=== PATIENT | female | born 1965 | race Caucasian/White ===

== ENCOUNTER 2024-09-23 13:02 | Emergency (ER) | payer OTHER ==
[2024-09-23] MEDS: Lidocaine/Epineph/Tetracaine 3 ML Syringe TOP ONE (14:07)
[2024-09-23] MEDS: Bacitracin Oint 1 GM U/D Packet TOP ONE (14:48)
[2024-09-23] MEDS: Diphtheria,Pertussis(Acell),Tetanus Vaccine 0.5 ML Syringe IM ONE (14:48)
== END 2024-09-23 15:29 | disposition home or self-care (01) ==
LOC: JP.ED 13:02
DX: S61.411A Laceration without foreign body of right hand, initial encounter (principal); W25.XXXA Contact with sharp glass, initial encounter
CPT/HCPCS: 12002; 90471; 90715; 99282; A9270